=== PATIENT | female | born 1965 | race Caucasian/White ===

== ENCOUNTER → 2020-09-10 14:28 | Outpatient (BNVA) | payer OTHER, SELFPAY | PROVIDERS: PCP Internal Medicine; Referring Provider Internal Medicine; Visit Provider Hospitalist | DX: Z76.89 Persons encountering health services in other specified circumstances (principal) ==

== ENCOUNTER 2021-03-08 15:01 | Outpatient (REF) | payer OTHER, SELFPAY ==
--- NOTE | 2021-03-08 17:40 | PFT_ITS ---
Forced vital capacity, FEV1, DEM88-09, and MVV are all normal. Post bronchodilator therapy, there is no significant change. Total lung capacity is normal. Residual volume slightly decreased. Diffusion capacity normal. CONCLUSION: Normal pulmonary function test. No evidence of obstructive or restrictive pulmonary disorder. Adilson Romero MD MSB/MODL / [id number]
== END 2021-03-08 15:02 | disposition home or self-care (01) ==
LOC: HO.RESP 15:01
PROVIDERS: PCP Internal Medicine; Visit Provider Hospitalist
DX: J45.909 Unspecified asthma, uncomplicated (principal)
CPT/HCPCS: 94060; 94727; 94729

== ENCOUNTER → 2021-08-10 15:46 | Outpatient (BNVA) | payer OTHER, SELFPAY | PROVIDERS: PCP Internal Medicine; Visit Provider Hospitalist | DX: G47.33 Obstructive sleep apnea (adult) (pediatric) (principal); Z99.89 Dependence on other enabling machines and devices ==

== ENCOUNTER → 2022-01-04 15:35 | Outpatient (BNVA) | payer OTHER, SELFPAY | PROVIDERS: PCP Internal Medicine; Visit Provider Hospitalist | DX: G47.33 Obstructive sleep apnea (adult) (pediatric) (principal); Z99.89 Dependence on other enabling machines and devices; J44.9 Chronic obstructive pulmonary disease, unspecified ==

== ENCOUNTER → 2022-12-27 10:51 | Outpatient (BNVA) | payer OTHER, SELFPAY | PROVIDERS: PCP Internal Medicine; Visit Provider Hospitalist | DX: Z13.89 Encounter for screening for other disorder (principal) ==

== ENCOUNTER → 2023-01-05 07:47 | Outpatient (REF) | payer OTHER, SELFPAY ==
--- NOTE | 2023-01-05 07:50 | CA_ITS ---
Transthoracic Echocardiogram Patient (Last, First, Middle): Goldie Go, Gender: Female Date of : 1965 Age: 57 Procedure Date: 01/05/2023 Procedure Type: Transthoracic Echocardiogram Location: OP Height: 160.02 cm Weight: 135.17 kg BSA: 2.29 m2 Heart Rate: bpm BP: 130 / 88 mmHg Fretted Instruments Inspector: PAGE Referring MD: Phillip Ham MD Symptoms: I27.20 - Pulmonary hypertension, unspecified Study Quality: Fair, contrast ECG Rhythm: Sinus Conclusions: - The left ventricular systolic function is normal. The calculated ejection fraction is 65% by biplane method. - No obvious valvular pathology seen on this study. - There is no evidence of pulmonary hypertension. Findings Procedure Information Contrast agent, definity, is being given per protocol without apparent complications. Left Ventricle Normal left ventricular cavity size. There is mildly increased left ventricular wall thickness. The left ventricular systolic function is normal. The calculated ejection fraction is 65% by biplane method. There is no evidence of regional wall motion abnormalities. Diastolic function is normal for age. Right Ventricle Normal right ventricular cavity size and systolic function. Atria Both atria are normal in size. Aortic Valve There is a normal trileaflet aortic valve. There is no aortic valve stenosis. There is no aortic valve regurgitation. Mitral Valve The mitral valve appears normal. There is no mitral valve regurgitation. There is no mitral valve stenosis. Pulmonic Valve The pulmonic valve was not well visualized. Tricuspid Valve There is trace tricuspid valve regurgitation. There is no evidence of pulmonary hypertension. Great Vessels The asc aorta is normal in size. Venous The inferior vena cava is normal in size and collapses greater than 50% with inspiration. Pericardium/Pleural There is no evidence of pericardial effusion. Prior Study Comparison No significant change compared to prior study dated: 12/02/2002. Recommendations, Care & Conclusions No obvious valvular pathology seen on this study. Measurements 2D Linear Measurements IVSd: 1.18 0.6-0.9/0.6-1.0 cm LVIDd: 4.99 3.9-5.3/4.2-5.9 cm LVIDd Index: 2.18 2.4-3.2/2.2-3.1 cm/m2 LVIDs: 3.09 2.0-3.6 cm LVPWd: 1.21 0.7-1.1 cm LA Diam: 3.70 2.7-3.8/3.0-4.0 cm LAIDs Index: 1.62 1.5-2.3 cm/m2 LV Mass: 288.80 67-162/88-224 g LV Mass Index: 126.12 43-95/49-115 g/m2 LVOT Diam: 2.00 3.0+(-)1.3 cm 2D Systolic Function EF 4C: 66.50 >55% EF 2C: 63.10 >55% EF BiP: 64.90 >55% Mitral Valve MV Pk E: 0.97 MV PK A: 0.67 MV Decel Time: 250.00 E/A: 1.40 E'Lateral: 11.70 E'Medial: 8.70 E/E' Med: 11.10 E/E' Lat: 8.30 PHT: 73.00 MVA PHT: 3.01 Decel Cecil: 3.87 Aortic Valve AoV Pk Manoj: 1.45 AoV Mn Manoj: 1.01 AoV VTI: 0.36 AoV Pk Grad: 8.00 Aov Mn Grad: 5.00 KARINA Cont.VTI: 2.01 LVOT LVOT Pk Manoj: 0.98 LVOT Mn Manoj: 0.65 LVOT VTI: 0.23 LVOT Pk Grad: 4.00 LVOT Mn Grad: 2.00 LVOT Diam: 2.00 LVOT Area: 3.14 Diastolic Function MV Pk E: 0.97 MV Pk A: 0.67 E/A: 1.40 E'Medial: 8.70 E/E' Med: 11.10 E' Laterial: 11.70 E/E' Lat: 8.30 Right Ventricle TAPSE (mm): 23.40 TVS' Manoj: 11.40 Tricuspid Valve TR Pk Manoj: 2.04 TR Pk Grad: 17.00 RA Press: 3.00 RVSP: 20.00 Great Vessels Aorta Sinus of Valsalva: 3.10 2.0-3.[address] [place]: 2.46 1.7-3.4 cm Ao Asc: 2.90 2.1-3.4 cm Updated in Other Vendor System with Status of Final Arash Lou MD electronically signed on 01/07/2023 12:26:34 PM with status of Final
== END ==
LOC: HO.CARD 07:47
PROVIDERS: PCP Internal Medicine; Visit Provider Hospitalist
DX: I27.20 Pulmonary hypertension, unspecified (principal); R06.00 Dyspnea, unspecified
CPT/HCPCS: 93306; Q9957

== ENCOUNTER 2023-01-12 06:58 | Outpatient (REF) | payer OTHER, SELFPAY ==
[2023-01-12 07:06] LABS: MANUAL DIFF FLAG NO
[2023-01-12 08:55] LABS: Basophils Percent Auto 0.1 % (0-2); Eosinophils Absolute Auto 0.1 X10*3/uL (0.0-0.4); Eosinophils Percent Auto 0.7 % (0-4); Hematocrit 43.5 % (37.0-47.0); Hemoglobin 13.9 g/dl (12.0-16.0); Imm Gran Abs Auto 0.05 X10*3/uL (0.00-0.03); Imm Gran Pct Auto 0.7 % (0.0-0.4); Lymphocytes Absolute Auto 2.8 X10*3/uL (1.2-4.9); Mean Corpuscular Hemoglobin 27.3 pg (27.0-33.0); Mean Corpuscular Volume 85.5 fL (80.0-98.0); Mean Platelet Volume 11.3 fL (9.4-12.3); Monocytes Absolute Auto 0.8 X10*3/uL (0.1-1.2); Monocytes Percent Auto 10.2 % (2-11); Neutrophils Absolute Auto 3.8 x10*3/uL (2.0-8.3); Neutrophils Percent Auto 51.3 % (45-73); Platelet Count 252 X10*3/uL (160-400); Red Blood Count 5.09 X10*6/uL (4.20-5.50); Red Cell Distribution Width 12.7 % (11.0-16.0); White Blood Count 7.5 X10*3/uL (4.8-10.8)
[2023-01-12 09:24] LABS: Anion Gap 17 (12-20); Blood Urea Nitrogen 21 mg/dL (9-16); Carbon Dioxide 25 mmol/L (22-29); Chloride 106 mmol/L (96-108); Estimated Glomerular Filt Rate > 60; Glucose Random 101 mg/dL (60-115); Potassium 4.8 mmol/L (3.3-5.1); Sodium 143 mmol/L (135-145)
[2023-01-12 09:50] LABS: Erythrocyte Sedimentation Rate 11 MM/HR (0-20)
== END 2023-01-12 06:59 | disposition home or self-care (01) ==
LOC: HO.LAB 06:58
PROVIDERS: PCP Internal Medicine; Visit Provider Hospitalist
DX: R06.00 Dyspnea, unspecified (principal)
CPT/HCPCS: 36415; 80048; 85025; 85652

== ENCOUNTER → 2023-03-10 14:09 | Outpatient (BNVA) | payer OTHER, SELFPAY | PROVIDERS: PCP Internal Medicine; Visit Provider Hospitalist | DX: Z13.89 Encounter for screening for other disorder (principal) ==

== ENCOUNTER 2024-09-13 13:45 | Outpatient (AMB) | payer OTHER, SELFPAY ==
[2024-09-13 13:56] VITALS: BP 134/92; PULSE 73; O2SAT 98; BMI 50.4
--- NOTE | 2024-09-13 13:56 | A.OFFVIS_ITS ---
Vital Signs 09/13/24 13:56 Height 5 ft 3.5 in Weight 288 lb 12.889 oz BMI 50.4 BP 134/92 H Blood Pressure Location Lt brachial Position Sitting Pulse 73 Pulse Source Pulse Oximeter Pulse Oximetry (%) 98 Oxygen Delivery Method Room Air Intake Visit Reasons: CALI/asthma De Icer Installer Required: No Allergies propofol Allergy (Severe, Verified 09/13/24 14:00) Uncontrollable Coughing pseudoephedrine [Sudafed] Allergy (Severe, Verified 09/13/24 14:00) Headaches HPI Comments Details: The patient is a 59-year-old woman known mild intermittent asthma and allergic rhinitis. She also has a history of of obstructive sleep apnea. She has been using CPAP. The CPAP therapy has been affecting beneficial. She uses the full face dreamwear mask that appears to be working well for her. Sometimes has some leakage issues. The patient has had serious issues with her CPAP S9 machine was not functioning any further. She has been 1 night with his CPAP and she became very concerned because significant snoring in significant difficulty sleeping. She does not want to be without her CPAP. Based on the fact that her machine is malfunctioning she is going to require new CPAP. I did recommend the Respironics dreams station. Will send a prescription to a local DME company, [facility].Her CPAP machine at the time was still functional to some degree. However, her machine is no longer functional. The patient definitely needs a replacement CPAP at this time. Were also limited by the fact that would not getting any data from the machine. Therefore, we discussed the issue again and I do feel strongly about getting her a new CPAP in order to make it auto allow to get data from the machine and also based on the fact that her machine is no longer working. I will resend a prescription over to the DME company for a new CPAP machine. I will request a Respironics dreamstation based on the fact that time she does not use humidification. 08/10/2021 the patient is here for a pulmonary follow-up visit. She has been struggling with her CPAP. She has been having difficulties with episodes of coughing and shortness of breath while using the Respironics CPAP that has been we called. She is concerned that she has harming herself. Therefore, at this point based on her worsening respiratory symptoms I will request that she get a replacement CPAP. I will reach out to her DME company in order to do so. in the meantime the patient continues to have increasing shortness of breath. Moderate severity. She has been noticing specially with a heated humidity that she was having more shortness of breath and coughing. She did have a rescue inhaler available and she did use it any did help her. At this point will try her on maintenance therapy to see if she gets relief. If the patient does not get relieved with maintenance therapy then we can consider a methacholine challenge to assess the diagnosis of asthma. She has other risk factors that are likely contributing to her shortness of breath including her body habitus. I will send a prescription for Trelegy to the pharmacy. She will try it and send me a message to see have effective it is. Will decide after that about maintenance therapy versus additional testing. The patient did have a chest x- ray back in the spring of 2020 demonstrating no acute disease. Prior to that back in [id number] scans demonstrating stable pulmonary nodules. 01/04/2022 the patient is here for a pulmonary follow-up visit. Overall the patient has been feeling better from a respiratory status. She did not have to use the Trelegy inhaler as the patient was concerned about side effects but also she felt better overall and did not require the medication. She still has a rescue inhaler available in case she needs it. She has not had to use it in the last several months. She continues with weight loss. She did lose significant more weight but then she required to have surgery for her foot and then had a stressful situation at work that kept her from Feeling safe. Therefore she has gained some weight from that episode. But now she is focused on getting back to exercise and good lifestyle changes. She continues use her CPAP. The CPAP therapy has been affecting beneficial. Although, not as effective as her APAP machine that it was recalled. She still waiting for a new machine. She is concerned of using the APAP because the risk of cancer. Therefore she will continue using her old machine that she had available although is not as effective. I am hopeful that she gets her new dream station to soon in order to go back to feeling more rested with better [place] score. 12/27/2022 the patient is here for pulmonary follow-up visit. He she still complaining of dyspnea on exertion. Significant with any activity. Specially when on the treadmill. Even at a very slow pace her heart rate increased to but 120 130 and she gets very winded. She feels that she cannot take a deep breath. The patient had tried inhalers in the past but she was concerned about the side effects but also did not help much. Her PFTs from 2020 were completely normal which is reassuring. In the meantime she had developed COVID and she is wondering some of the symptoms could be some COVID related adverse effects. In addition to that she continues to have increased lower extremity edema. We had given some Lasix the last time about 3 days worth. Some clear how much is help because was all but a year ago. At this point she does have 2 to 3+ pitting edema and therefore I will give her a longer course of Lasix. Also request an echocardiogram to address the issue of this lower extremity edema. She does have a new appointment with primary care doctor coming up. Hopefully they can help assist with her lower extremity edema swelling as well. Was on the Lasix the patient will come in to get blood work to make sure that her electrolytes and kidney function stay within normal ranges. She did get her new CPAP. She has been using the dream station 2 now. Seems to be affecting beneficial. She does use it for more than 4 hours a night. She will bring the CPAP to the next appointment. 03/10/2023 The patient is here for a pulmonary follow up visit. The patient is feeling better. Dyspnea with activity, mild in severity. Still using her CPAP. She did get back a refirbished dreamstation 1. AHI well below 1. The cpap therapy has been effective and beneficial. She does use it for more than 4 hours a night, The asthma is better. Has not had to use her KRANTHI or prednisone, She did undergo an ECHO that is reassuring, but with mild LVH. She needs to continue with low sodium diet. 09/13/2024 the patient is here for a pulmonary follow-up visit. Overall the patient is doing well. She is using her CPAP. She still has a prefers dream station 1. her AHI is well below 1. her pressures are adequate. Her machine is working seamlessly at this time. Her mask is comfortable. She does use the machine for more than 4 hours a night. And is very affecting beneficial for him. Breathing hong the patient is doing well. Denies any significant shortness of breath. She is working on weight management as she already lost nearly 20 lb. She is going to continue to focus on weight management through the program so she is participating. She is not using any inhalers at this time. otherwise the patient is doing well from a respiratory status so therefore follow-up in a year's time. If she develops any issues prior to that she coughing earlier assessment. [facility] Medical History (Updated 12/27/22 @ 20:10 by Phillip Ham MD) Bilateral edema of lower extremity CALI on CPAP Asthma Dyspnea Social History Patient Tobacco Use Status: Former Tobacco user Tobacco use type: Cigarette Years Smoked: 20 years Review of Systems Const Denies night sweats and Reports weight loss ENT Denies change in voice, Denies lip swelling, Denies mouth pain, Reports nasal congestion, Reports nasal discharge and Denies tongue swelling Card Denies chest pain, Denies palpitations and Reports dyspnea on exertion Resp Reports cough and Reports dyspnea on exertion GI Denies abdominal pain Musc Denies no additional complaints Neuro Denies Neuro-related abnormal movements Psych Denies no additional complaints Endo Denies palpitations Gurvinder/Lymph Denies easy bleeding and Denies lymphadenopathy Aller/Immun Denies lip swelling and Denies tongue swelling Physical Exam Vital Signs: Last Vital Signs Pulse 73 09/13/24 13:56 BP 134/92 H 09/13/24 13:56 Pulse Ox 98 09/13/24 13:56 Oxygen Delivery Method Room Air 09/13/24 13:56 BMI result Body Mass Index 50.4 Const General: alert Neck Neck: Yes normal visual inspection, Yes full ROM and Yes no lymphadenopathy Chest Chest palpation & inspection: normal inspection of the chest Resp Auscultation: clear to auscultation bilaterally, no rhonchi and no wheezes Cardio Rate: regular rate Rhythm: regular rhythm Heart sounds: S1 normal heart sound present and S2 normal heart sound present GI Palpation (GI): Soft to palpation and nontender Auscultation: normal bowel sounds Skin General skin exam: rashes and/or lesions noted Extrem General: No clubbing, No cyanosis and Yes edema Assessment & Plan Assessment & Plan (1) CALI on CPAP: Code(s): G47.33 - Obstructive sleep apnea (adult) (pediatric); Z99.89 - Dependence on other enabling machines and devices Category: Medical (2) Asthma: Code(s): J45.909 - Unspecified asthma, uncomplicated Category: Medical Qualifiers: Asthma complication type: uncomplicated Asthma persistence: intermittent Asthma severity: mild Qualified Code(s): J45.20 - Mild i ntermittent asthma, uncomplicated (3) Dyspnea: Comment: multifactorial Code(s): R06.00 - Dyspnea, unspecified Category: Medical Qualifiers: Dyspnea type: dyspnea on exertion Qualified Code(s): R06.00 - Dyspnea, unspecified (4) Bilateral edema of lower extremity: Code(s): R60.0 - Localized edema Category: Medical Plan continue APAP, Dreamstation referbished Low NA diet KRANTHI as needed F/U 12 months Coding Level of Care Code Est Pt Level 4 (25259) Diagnoses CALI on CPAP G47.33; Z99.89 Mild intermittent asthma without complication J45.20 Asthma complication type: uncomplicated Asthma persistence: intermittent Asthma severity: mild Dyspnea on exertion R06.00 Dyspnea type: dyspnea on exertion Bilateral edema of lower extremity R60.0 Time Spent (min) 16
== END 2024-09-13 14:20 | disposition home or self-care (01) ==
LOC: HO.HPS 13:46
PROVIDERS: PCP Internal Medicine; Visit Provider Hospitalist
DX: G47.33 Obstructive sleep apnea (adult) (pediatric) (principal); Z99.89 Dependence on other enabling machines and devices; J45.20 Mild intermittent asthma, uncomplicated; R06.00 Dyspnea, unspecified; R60.0 Localized edema
CPT/HCPCS: 99214

== ENCOUNTER → 2024-09-13 13:45 | Outpatient (BNVA) | payer OTHER, SELFPAY | PROVIDERS: PCP Internal Medicine; Visit Provider Hospitalist ==

== ENCOUNTER 2025-10-21 14:28 | Outpatient (AMB) | payer OTHER, SELFPAY ==
--- NOTE | 2025-10-21 14:30 | MHC.OFFVIS ---
Vital Signs 10/21/25 14:31 Height 5 ft 3.5 in Weight 311 lb 15.265 oz BMI 54.4 BP 160/90 H Blood Pressure Location Lt brachial Position Sitting Pulse 86 Pulse Source Pulse Oximeter Pulse Oximetry (%) 96 Oxygen Delivery Method Room Air Intake Visit Reasons: cali/asthma [employer] Required: No Accompanied by: Self / Same As Patient Allergies propofol Allergy (Severe, Verified 10/21/25 14:34) Uncontrollable Coughing pseudoephedrine (Sudafed) Allergy (Severe, Verified 10/21/25 14:34) Headaches Sulfa (Sulfonamide Antibiotics) Allergy (Mild, Verified 10/21/25 14:34) Hives HPI Comments Details: The patient is a 60-year-old woman known mild intermittent asthma and allergic rhinitis. She also has a history of of obstructive sleep apnea. She has been using CPAP. The CPAP therapy has been affecting beneficial. She uses the full face dreamwear mask that appears to be working well for her. Sometimes has some leakage issues. The patient has had serious issues with her CPAP S9 machine was not functioning any further. She has been 1 night with his CPAP and she became very concerned because significant snoring in significant difficulty sleeping. She does not want to be without her CPAP. Based on the fact that her machine is malfunctioning she is going to require new CPAP. I did recommend the RespirSensinodes station. Will send a prescription to a local [employer] company, [facility].Her CPAP machine at the time was still functional to some degree. However, her machine is no longer functional. The patient definitely needs a replacement CPAP at this time. Were also limited by the fact that would not getting any data from the machine. Therefore, we discussed the issue again and I do feel strongly about getting her a new CPAP in order to make it auto allow to get data from the machine and also based on the fact that her machine is no longer working. I will resend a prescription over to the [employer] company for a new CPAP machine. I will request a Respironics dreamstation based on the fact that time she does not use humidification. 08/10/2021 the patient is here for a pulmonary follow-up visit. She has been struggling with her CPAP. She has been having difficulties with episodes of coughing and shortness of breath while using the Respironics CPAP that has been we called. She is concerned that she has harming herself. Therefore, at this point based on her worsening respiratory symptoms I will request that she get a replacement CPAP. I will reach out to her [employer] company in order to do so. in the meantime the patient continues to have increasing shortness of breath. Moderate severity. She has been noticing specially with a heated humidity that she was having more shortness of breath and coughing. She did have a rescue inhaler available and she did use it any did help her. At this point will try her on maintenance therapy to see if she gets relief. If the patient does not get relieved with maintenance therapy then we can consider a methacholine challenge to assess the diagnosis of asthma. She has other risk factors that are likely contributing to her shortness of breath including her body habitus. I will send a prescription for Trelegy to the pharmacy. She will try it and send me a message to see have effective it is. Will decide after that about maintenance therapy versus additional testing. The patient did have a chest x-ray back in the spring of 2020 demonstrating no acute disease. Prior to that back in 5811-[address] serial CT scans demonstrating stable pulmonary nodules. 01/04/2022 the patient is here for a pulmonary follow-up visit. Overall the patient has been feeling better from a respiratory status. She did not have to use the Trelegy inhaler as the patient was concerned about side effects but also she felt better overall and did not require the medication. She still has a rescue inhaler available in case she needs it. She has not had to use it in the last several months. She continues with weight loss. She did lose significant more weight but then she required to have surgery for her foot and then had a stressful situation at work that kept her from Feeling safe. Therefore she has gained some weight from that episode. But now she is focused on getting back to exercise and good lifestyle changes. She continues use her CPAP. The CPAP therapy has been affecting beneficial. Although, not as effective as her APAP machine that it was recalled. She still waiting for a new machine. She is concerned of using the APAP because the risk of cancer. Therefore she will continue using her old machine that she had available although is not as effective. I am hopeful that she gets her new dream station to soon in order to go back to feeling more rested with better [place] score. 12/27/2022 the patient is here for pulmonary follow-up visit. He she still complaining of dyspnea on exertion. Significant with any activity. Specially when on the treadmill. Even at a very slow pace her heart rate increased to but 120 130 and she gets very winded. She feels that she cannot take a deep breath. The patient had tried inhalers in the past but she was concerned about the side effects but also did not help much. Her PFTs from 2020 were completely normal which is reassuring. In the meantime she had developed COVID and she is wondering some of the symptoms could be some COVID related adverse effects. In addition to that she continues to have increased lower extremity edema. We had given some Lasix the last time about 3 days worth. Some clear how much is help because was all but a year ago. At this point she does have 2 to 3+ pitting edema and therefore I will give her a longer course of Lasix. Also request an echocardiogram to address the issue of this lower extremity edema. She does have a new appointment with primary care doctor coming up. Hopefully they can help assist with her lower extremity edema swelling as well. Was on the Lasix the patient will come in to get blood work to make sure that her electrolytes and kidney function stay within normal ranges. She did get her new CPAP. She has been using the dream station 2 now. Seems to be affecting beneficial. She does use it for more than 4 hours a night. She will bring the CPAP to the next appointment. 03/10/2023 The patient is here for a pulmonary follow up visit. The patient is feeling better. Dyspnea with activity, mild in severity. Still using her CPAP. She did get back a refirbished dreamstation 1. AHI well below 1. The cpap therapy has been effective and beneficial. She does use it for more than 4 hours a night, The asthma is better. Has not had to use her KRANTHI or prednisone, She did undergo an ECHO that is reassuring, but with mild LVH. She needs to continue with low sodium diet. 09/13/2024 the patient is here for a pulmonary follow-up visit. Overall the patient is doing well. She is using her CPAP. She still has a prefers dream station 1. her AHI is well below 1. her pressures are adequate. Her machine is working seamlessly at this time. Her mask is comfortable. She does use the machine for more than 4 hours a night. And is very affecting beneficial for him. Breathing hong the patient is doing well. Denies any significant shortness of breath. She is working on weight management as she already lost nearly 20 lb. She is going to continue to focus on weight management through the program so she is participating. She is not using any inhalers at this time. otherwise the patient is doing well from a respiratory status so therefore follow-up in a year's time. If she develops any issues prior to that she coughing earlier assessment. 10/21/2025 the patient is here for pulmonary follow-up visit. Overall the patient is doing well. She recently did see a new primary care doctor in her blood pressure medications were increased because her blood pressure was elevated. She has been using her CPAP. CPAP therapy has been affecting beneficial she does use it for more than 4 hours a night. Her AHI is down to 0.2 which is extremely good. She does tolerate it well and she gets supplies from her [employer] company regularly, regional. As far as her blood pressure today was elevated 160/90. She is not following a low-sodium diet. We did talk about the importance specially with lower extremity edema at this time. She also takes amlodipine that can cause edema but she needs to continue to decrease her sodium intake. I will switch her over to Lasix for 3 days so she can have better diuresis for the next 3 days and then afterwards she can go back to the hydrochlorothiazide. The patient will continue to use her PAP therapy and she does have a respiratory medications as needed. The patient follow-up in a year if she has any issues prior to this she can always call for further recommendations. [facility] Medical History (Updated 12/27/22 @ 20:10 by Phillip Ham MD) Bilateral edema of lower extremity CALI on CPAP Asthma Dyspnea Social History Patient Tobacco Use Status: Former Tobacco user Tobacco use type: Cigarette Years Smoked: 20 years Review of Systems Const Denies night sweats and Reports weight loss ENT Denies change in voice, Denies lip swelling, Denies mouth pain, Reports nasal congestion, Reports nasal discharge and Denies tongue swelling Card Denies chest pain, Denies palpitations and Reports dyspnea on exertion Resp Reports cough and Reports dyspnea on exertion GI Denies abdominal pain Musc Denies no additional complaints Neuro Denies Neuro-related abnormal movements Psych Denies no additional complaints Endo Denies palpitations Gurvinder/Lymph Denies easy bleeding and Denies lymphadenopathy Aller/Immun Denies lip swelling and Denies tongue swelling Physical Exam Vital Signs: Last Vital Signs Pulse 86 10/21/25 14:31 BP 160/90 H 10/21/25 14:31 Pulse Ox 96 10/21/25 14:31 Oxygen Delivery Method Room Air 10/21/25 14:31 BMI result Body Mass Index 54.4 Const General: alert Neck Neck: Yes normal visual inspection, Yes full ROM and Yes no lymphadenopathy Chest Chest palpation & inspection: normal inspection of the chest Resp Effort & Inspection: normal respiratory effort Auscultation: clear to auscultation bilaterally, no rhonchi and no wheezes Cardio Rate: regular rate Rhythm: regular rhythm Heart sounds: S1 normal heart sound present and S2 normal heart sound present GI Palpation (GI): Soft to palpation and nontender Auscultation: normal bowel sounds Skin General skin exam: rashes and/or lesions noted Extrem General: No clubbing, No cyanosis and Yes edema Office Procedures Flu Questionnaire Does the patient have a severe egg allergy?: No Does the patient have severe life threatening allergies?: No Does the patient have a fever or illness today?: No Has the patient ever had Guillain-[place] Syndrome?: No Has the patient ever had any past reaction to a flu shot?: No Immunizations Fluarix [id number] (PF) 45 mcg (15 mcg x 3)/0.5 mL IM syringe Performing Provider: Phillip Ham MD Performing Location: [facility] Administered by: Pamela Turcios LPN on 10/21/25 15:07 Dose Route Admin Location Dispensed Lot Number Expiration Date NDC Emergency Department Physician 0.5 mL IM Right Deltoid 0.5 mL [id number] 05/12/26 19191-545-23 [employer] VIS Given Date VIS Provided VIS Publication Date 10/21/25 Single Vaccine 24 Eligibility Eligibility Date Funding Source Not [facility] Eligible 10/21/25 Private Assessment & Plan Assessment & Plan (1) CALI on CPAP: Code(s): G47.33 - Obstructive sleep apnea (adult) (pediatric); Z99.89 - Dependence on other enabling machines and devices Category: Medical (2) Asthma: Code(s): J45.909 - Unspecified asthma, uncomplicated Category: Medical Qualifiers: Asthma severity: mild Asthma persistence: intermittent Asthma complication type: uncomplicated Qualified Code(s): J45.20 - Mild intermittent asthma, uncomplicated (3) Dyspnea: Comment: multifactorial Code(s): R06.00 - Dyspnea, unspecified Category: Medical Qualifiers: Dyspnea type: dyspnea on exertion Qualified Code(s): R06.00 - Dyspnea, unspecified (4) Bilateral edema of lower extremity: Code(s): R60.0 - Localized edema Category: Medical Plan continue APAP, Dreamstation referbished Low NA diet Lasix x 3 doses KRANTHI as needed F/U 12 months Orders: Orders Influenza [id number] Immunization Today J45.20 - Mild intermittent asthma, uncomplicated Medications: New furosemide (Lasix) 20 mg PO DAILY 3 tabs 0RF 3 days Coding Level of Care Code Est Pt Level 4 (60357) Diagnoses CALI on CPAP G47.33; Z99.89 Mild intermittent asthma without complication J45.20 Asthma severity: mild Asthma persistence: intermittent Asthma complication type: uncomplicated Dyspnea on exertion R06.00 Dyspnea type: dyspnea on exertion Bilateral edema of lower extremity R60.0 Time Spent (min) 16
[2025-10-21 14:31] VITALS: BP 160/90; PULSE 86; O2SAT 96; BMI 54.4
--- OUTSIDE RECORDS SUMMARY | 2025-10-21 20:23 | XMS_ITS | Clinical Summary ---
Author Organization [facility] Prior to 04/12/[address] [place] [id number] Care Team Providers Care Galley Boy Name Role Phone Lukas Tabares MD Primary Care Provider [phone] Allergies Active Allergy Reactions Criticality Noted Date Comments Propofol 03/09/2018 Pseudoephedrine 03/09/2018 Sulfa Antibiotics 03/09/2018 Medications Medication Sig Dispensed Refills Start Date End Date Status amLODIPine (NORVASC) tablet 10 mg take 1 tablet by mouth once daily for high blood pressure 0 02/08/2018 Active amLODIPine (NORVASC) tablet 5 mg 0 01/13/2018 Active losartan (COZAAR) tablet 50 mg take 1 tablet by mouth once daily 0 02/19/2018 Active losartan (COZAAR) 100 MG tablet take 1 tablet by mouth once daily 0 12/01/2017 Active Active Problems Problem Noted Date Diagnosed Date Renal benign neoplasm, right Renal cyst Overview: simple Stress incontinence Renal mass Family History Medical History Relation Name Comments Breast cancer Mother Lymphoma Paternal Aunt Relation Name Status Comments Mother Paternal Aunt Social History Tobacco Use Types Packs/Day Years Used Date Smoking Tobacco: Former Smokeless Tobacco: Never Comments:9YRS AGO Alcohol Use Standard Drinks/Week Comments Yes 0 (1 standard drink = 0.6 oz pur e alcohol) SOCIAL Sex and Gender Information Value Date Recorded Sex Assigned at Not on file Gender Identity Not on file Sexual Orientation Not on file Last Filed Vital Signs Vital Sign Reading Time Taken Comments Blood Pressure 140/80 03/09/2018 3:30 PM EDT Pulse - - Temperature - - Respiratory Rate - - Oxygen Saturation - - Inhaled Oxygen Concentration - - Weight 129.3 kg (285 lb) 03/09/2018 3:30 PM EDT Height 160 cm (5' 3 ) 03/09/2018 3:30 PM EDT Body Mass Index 50.49 03/09/2018 3:30 PM EDT Plan of Treatment Health Maintenance Due Date Last Done Comments Hepatitis C Screening 1965 COVID-19 Vaccine (#1) 1965 Depression Screening 1977 Preventative Health Evaluation 1983 DTap / Tdap / Td (1 - Tdap) 02/07/1984 Cervical Cancer Screening (P ap Smear) 1986 Colon Cancer Screening (Colonoscopy) 2010 Breast Cancer Screening (Mammogram) 2015 Shingrix-Zoster Vaccine (1 of 2) 2015 Influenza Vaccine (#1) 2025 RSV Adult > 60+ Yrs or Pregn ant (1 - 1-dose 75+ series) 02/07/2040 Hepatitis B Vaccines Aged Out No long er eligible based on patient's age to complete this topic Pneumococcal Vaccine Aged Out No long er eligible based on patient's age to complete this topic RSV Ped < 20 months Aged Out No longe r eligible based on patient's age to complete this topic Care Teams Galley Boy Relationship Specialty Start Date End Date Lukas Tabares MD [id number] [place] [address] PCP - General Internal Medicine 03/09/18
== END 2025-10-21 15:02 | disposition home or self-care (01) ==
LOC: HO.HPS 14:29
PROVIDERS: PCP Internal Medicine; Visit Provider Hospitalist
DX: G47.33 Obstructive sleep apnea (adult) (pediatric) (principal); Z99.89 Dependence on other enabling machines and devices; J45.20 Mild intermittent asthma, uncomplicated; R06.00 Dyspnea, unspecified; R60.0 Localized edema
CPT/HCPCS: 99214

== ENCOUNTER → 2025-10-21 14:28 | Outpatient (BNVA) | payer OTHER, SELFPAY | PROVIDERS: PCP Internal Medicine; Visit Provider Hospitalist | DX: Z23 Encounter for immunization (principal); G47.33 Obstructive sleep apnea (adult) (pediatric); J45.20 Mild intermittent asthma, uncomplicated; R60.0 Localized edema; Z99.89 Dependence on other enabling machines and devices; Z87.891 Personal history of nicotine dependence | CPT/HCPCS: 90471; 90656 ==